=== PATIENT | male | born 1980 | race Caucasian/White ===

== ENCOUNTER → 2016-04-24 | Outpatient (REF) | payer BC, OTHER ==
[2016-04-24 12:19] LABS: ALBUMIN 4.6 GM/DL (3.2-5.2); ALBUMIN/GLOBULIN RATIO 1.35 (1.00-1.93); ALKALINE PHOSPHATASE 78 U/L (45-117); ALT/SGPT 85 U/L (12-78); ANION GAP 7 MEQ/L (8-16); AST/SGOT 39 U/L (15-37); BILIRUBIN,TOTAL 0.8 MG/DL (0.2-1.0); BLOOD UREA NITROGEN 22 MG/DL (7-18); CALCIUM LEVEL 9.4 MG/DL (8.5-10.1); CARBON DIOXIDE LEVEL 31 MEQ/L (21-32); CHLORIDE LEVEL 104 MEQ/L (98-107); GLOMERULAR FILTRATION RATE > 60.0 (>60); GLUCOSE, FASTING 101 MG/DL (70-105); POTASSIUM SERUM 4.6 MEQ/L (3.5-5.1); SODIUM LEVEL 142 MEQ/L (136-145)
== END ==
LOC: M LABDRAW1 10:55
PROVIDERS: ATTEND Family Medicine
DX: R73.01 Impaired fasting glucose (principal); R74.8 Abnormal levels of other serum enzymes

== ENCOUNTER → 2016-12-07 | Outpatient (REF) | payer OTHER | LOC: M SFHCPLAZ 12:41 | PROVIDERS: ATTEND Family Medicine | DX: J30.2 Other seasonal allergic rhinitis (principal) ==

== ENCOUNTER → 2017-08-07 | Outpatient (CLI) | payer BC, OTHER | LOC: M SLEEP 20:11 | DX: G47.30 Sleep apnea, unspecified (principal) | CPT/HCPCS: 95810 ==

== ENCOUNTER → 2017-09-19 | Outpatient (CLI) | payer BC, OTHER | LOC: M SLEEP 19:43 | DX: G47.33 Obstructive sleep apnea (adult) (pediatric) (principal) | CPT/HCPCS: 95811 ==

== ENCOUNTER → 2018-02-17 | Outpatient (REF) | payer BC, OTHER | LOC: M LAB REF 20:15 | DX: L73.8 Other specified follicular disorders (principal) | CPT/HCPCS: 87186 ==

== ENCOUNTER → 2018-05-16 | Outpatient (REF) | payer OTHER ==
[2018-05-16 14:18] LABS: HEMOGLOBIN 18.2 g/dl (13.5-17.5); MEAN CORPUSCULAR HEMOGLOBIN 32.9 pg (27.0-33.0); MEAN CORPUSCULAR VOLUME 93.9 fl (80.0-96.0); PLATELET COUNT, AUTOMATED 190 10^3/uL (150-450); RED BLOOD COUNT 5.54 10^6/uL (4.30-6.10); WHITE BLOOD COUNT 5.9 10^3/uL (4.0-10.0)
[2018-05-16 14:21] LABS: ALBUMIN 4.4 GM/DL (3.2-5.2); ALT/SGPT 136 U/L (12-78); BLOOD UREA NITROGEN 18 MG/DL (7-18); CALCIUM LEVEL 9.1 MG/DL (8.5-10.1); CARBON DIOXIDE LEVEL 29 MEQ/L (21-32); CHLORIDE LEVEL 103 MEQ/L (98-107); CHOLESTEROL LEVEL 217 MG/DL (<200); CHOLESTEROL RISK RATIO 4.931 (<5); CREATININE FOR GFR 1.24 MG/DL (0.70-1.30); FERRITIN 534 NG/ML (26-388); GLOMERULAR FILTRATION RATE > 60.0 (>60); GLUCOSE, FASTING 110 MG/DL (70-100); HDL CHOLESTEROL 44 MG/DL (>40); IRON (FE) 159 UG/DL (65-175); LDL CHOLESTEROL 142 MG/DL (<100); NON-HDL-C 173 MG/DL; PERCENT SATURATION 45.2 % (19.7-50.0); POTASSIUM SERUM 4.4 MEQ/L (3.5-5.1); SODIUM LEVEL 137 MEQ/L (136-145); TOTAL IRON BINDING CAPACITY 352 UG/DL (250-450); TOTAL PROTEIN 7.5 GM/DL (6.4-8.2); TRIGLYCERIDES LEVEL 154 MG/DL (<150)
[2018-05-16 15:37] LABS: HEPATITIS B SURFACE ANTIGEN NEGATIVE (NEGATIVE)
== END ==
LOC: M SFHCPLAZ 11:20
PROVIDERS: ATTEND Family Medicine
DX: R79.89 Other specified abnormal findings of blood chemistry (principal); Z13.220 Encounter for screening for lipoid disorders
CPT/HCPCS: 36415; 80053; 80061; 82728; 83550; 85027; 87340; G0472

== ENCOUNTER → 2018-05-19 | Outpatient (REF) | payer OTHER ==
[2018-05-19 16:40] LABS: HEMATOCRIT 51.6 % (42.0-52.0); HEMOGLOBIN 17.7 g/dl (13.5-17.5); MEAN CORPUSCULAR HEMOGLOBIN 32.2 pg (27.0-33.0); MEAN CORPUSCULAR HGB CONC 34.3 g/dl (32.0-36.5); MEAN CORPUSCULAR VOLUME 93.8 fl (80.0-96.0); PLATELET COUNT, AUTOMATED 241 10^3/uL (150-450); WHITE BLOOD COUNT 8.2 10^3/uL (4.0-10.0)
== END ==
LOC: M SFHCPLAZ 14:54
PROVIDERS: ATTEND Family Medicine
DX: D75.1 Secondary polycythemia (principal)

== ENCOUNTER → 2018-05-22 | Outpatient (REF) | payer OTHER | LOC: M SFHCPLAZ 11:14 | PROVIDERS: ATTEND Dermatology | DX: L71.0 Perioral dermatitis (principal) ==

== ENCOUNTER → 2018-09-17 | Outpatient (REF) | payer OTHER ==
[2018-09-17 09:59] LABS: HEMATOCRIT 49.2 % (42.0-52.0); HEMOGLOBIN 16.9 g/dl (13.5-17.5); MEAN CORPUSCULAR HEMOGLOBIN 31.8 pg (27.0-33.0); MEAN CORPUSCULAR HGB CONC 34.3 g/dl (32.0-36.5); MEAN CORPUSCULAR VOLUME 92.5 fl (80.0-96.0); PLATELET COUNT, AUTOMATED 225 10^3/uL (150-450); RED BLOOD COUNT 5.32 10^6/uL (4.30-6.10); WHITE BLOOD COUNT 5.3 10^3/uL (4.0-10.0)
[2018-09-17 10:09] LABS: INR 1.06; PROTHROMBIN TIME 13.5 SECONDS (11.8-14.0)
[2018-09-17 10:10] LABS: PARTIAL THROMBOPLASTIN TIME 28.2 SECONDS (25.0-38.4)
[2018-09-17 10:27] LABS: ALBUMIN 4.5 GM/DL (3.2-5.2); ALT/SGPT 138 U/L (12-78); BILIRUBIN,DIRECT 0.2 MG/DL (0.0-0.2); BILIRUBIN,TOTAL 0.8 MG/DL (0.2-1.0); FERRITIN 474 NG/ML (26-388); IRON (FE) 109 UG/DL (65-175); PERCENT SATURATION 29.6 % (19.7-50.0); TOTAL IRON BINDING CAPACITY 368 UG/DL (250-450); TOTAL PROTEIN 7.8 GM/DL (6.4-8.2)
[2018-09-17 11:01] LABS: HEPATITIS B SURFACE ANTIBODY NEGATIVE (POSITIVE)
[2018-09-17 11:23] LABS: HEPATITIS B SURFACE ANTIGEN NEGATIVE (NEGATIVE)
[2018-09-17 11:38] LABS: HEPATITIS C VIRUS ABY INDEX 0.1 INDEX (<0.8)
[2018-09-17 11:42] LABS: HEPATITIS A ANTIBODY IGM NEGATIVE (NEGATIVE)
[2018-09-18 12:12] LABS: ALBUMIN % 63.5 % (55.8-66.1); ALPHA-1-GLOBULIN % 3.3 % (2.9-4.9); ALPHA-2-GLOBULINS % 7.9 % (7.1-11.8); BETA-1-GLOBULINS % 5.7 % (4.7-7.2)
[2018-09-18 12:13] LABS: ALBUMIN 4.95 GM/DL (3.29-5.55); ALPHA-1-GLOBULINS 0.26 GM/DL (0.17-0.41); ALPHA-2-GLOBULINS 0.62 GM/DL (0.42-0.99); BETA-1-GLOBULINS 0.44 GM/DL (0.28-0.60); BETA-2-GLOBULINS % 3.9 % (3.2-6.5); GAMMA GLOBULIN % 15.7 % (11.1-18.8); GAMMA GLOBULINS 1.22 GM/DL (0.65-1.58)
[2018-09-23 00:06] LABS: ALPHA 1 ANTITRYPSIN 110 mg/dL (90-200); ANTI-MITOCHONDRIAL ANTIBODY <20.0 Units (0.0-20.0); ANTI-SMOOTH MUSCLE ANTIBODY 23 Units (0-19); ANTINUCLEAR ANTIBODIES DIRECT Negative (Negative); CERULOPLASMIN 19.8 mg/dL (16.0-31.0); HEPATITIS A IgG TOTAL Negative (Negative); LIVER-KIDNEY MICROSOMAL ABY <20.1 Units (0.0-20.0)
== END ==
LOC: M LABDRAWP 08:43
PROVIDERS: ATTEND Internal Medicine Gastroenterology
DX: R94.5 Abnormal results of liver function studies (principal); K76.0 Fatty (change of) liver, not elsewhere classified; F10.20 Alcohol dependence, uncomplicated; R77.8 Other specified abnormalities of plasma proteins; D75.1 Secondary polycythemia; R10.31 Right lower quadrant pain; R19.5 Other fecal abnormalities

== ENCOUNTER → 2018-10-29 | Outpatient (CLI) | payer OTHER ==
--- NOTE | 2018-10-29 11:30 | REP ---
LEFT FOOT, FOUR VIEWS: HISTORY: Pain. There is no acute fracture or dislocation. The joint spaces are normal in appearance. An osteophyte is present on the posterior calcaneus. IMPRESSION: There is no acute fracture or dislocation. Electronically Signed by Jacob Booker MD 10/29/2018 12:47 P
== END ==
LOC: M LRY 10:48
PROVIDERS: ATTEND Physician Assistant
DX: M79.672 Pain in left foot (principal)

== ENCOUNTER → 2018-11-06 | Outpatient (REF) | payer OTHER ==
[2018-11-06 15:52] LABS: PLATELET COUNT, AUTOMATED 243 10^3/uL (150-450)
[2018-11-06 16:02] LABS: INR 1.01
[2018-11-06 16:03] LABS: PARTIAL THROMBOPLASTIN TIME 30.8 SECONDS (25.0-38.4)
== END ==
LOC: M LABDRAW1 11:46
PROVIDERS: ATTEND Physician Assistant
DX: Z01.812 Encounter for preprocedural laboratory examination (principal)

== ENCOUNTER → 2019-06-02 | Outpatient (CLI) | payer OTHER ==
[2019-06-02 15:14] LABS: HEMATOCRIT 50.5 % (42.0-52.0); MEAN CORPUSCULAR HEMOGLOBIN 33.3 pg (27.0-33.0); MEAN CORPUSCULAR HGB CONC 35.6 g/dl (32.0-36.5); MEAN CORPUSCULAR VOLUME 93.3 fl (80.0-96.0); PLATELET COUNT, AUTOMATED 246 10^3/uL (150-450); RED BLOOD COUNT 5.41 10^6/uL (4.30-6.10); WHITE BLOOD COUNT 5.5 10^3/uL (4.0-10.0)
[2019-06-02 15:30] LABS: INR 0.99; PROTHROMBIN TIME 12.8 SECONDS (11.8-14.0)
[2019-06-02 15:56] LABS: ALBUMIN 4.4 GM/DL (3.2-5.2); BILIRUBIN,DIRECT 0.1 MG/DL (0.0-0.2); BILIRUBIN,TOTAL 0.5 MG/DL (0.2-1.0); TOTAL PROTEIN 7.7 GM/DL (6.4-8.2)
== END ==
LOC: M PLALAB 12:52
PROVIDERS: ATTEND Internal Medicine Gastroenterology
DX: R19.5 Other fecal abnormalities (principal); R10.31 Right lower quadrant pain; R94.5 Abnormal results of liver function studies; K76.0 Fatty (change of) liver, not elsewhere classified; R77.8 Other specified abnormalities of plasma proteins; F10.20 Alcohol dependence, uncomplicated

== ENCOUNTER → 2020-01-24 | Outpatient (CLI) | payer OTHER | LOC: M LABSMTC 10:07 | PROVIDERS: ATTEND Physical Medicine & Rehabilitation | DX: Z20.828 Contact with and (suspected) exposure to other viral communicable diseases (principal) ==

== ENCOUNTER → 2020-09-19 | Outpatient (REF) | payer OTHER, BC ==
[2020-09-19 17:19] LABS: HEMATOCRIT 49.4 % (42.0-52.0); HEMOGLOBIN 17.4 g/dl (13.5-17.5); MEAN CORPUSCULAR HEMOGLOBIN 32.4 pg (27.0-33.0); MEAN CORPUSCULAR HGB CONC 35.2 g/dl (32.0-36.5); PLATELET COUNT, AUTOMATED 244 10^3/uL (150-450); RED BLOOD COUNT 5.37 10^6/uL (4.30-6.10); WHITE BLOOD COUNT 6.2 10^3/uL (4.0-10.0)
[2020-09-19 17:29] LABS: INR 0.91; PARTIAL THROMBOPLASTIN TIME 28.8 SECONDS (24.2-38.5); PROTHROMBIN TIME 12.4 SECONDS (12.5-14.3)
[2020-09-19 17:51] LABS: ALBUMIN 4.6 GM/DL (3.2-5.2); ALT/SGPT 160 U/L (12-78); BILIRUBIN,DIRECT 0.2 MG/DL (0.0-0.2); BILIRUBIN,TOTAL 0.6 MG/DL (0.2-1.0); BLOOD UREA NITROGEN 13 MG/DL (7-18); CALCIUM LEVEL 9.7 MG/DL (8.5-10.1); CARBON DIOXIDE LEVEL 27 MEQ/L (21-32); CHLORIDE LEVEL 107 MEQ/L (98-107); CREATININE FOR GFR 1.07 MG/DL (0.70-1.30); GLOMERULAR FILTRATION RATE > 60.0 (>60); GLUCOSE, FASTING 108 MG/DL (70-100); POTASSIUM SERUM 4.3 MEQ/L (3.5-5.1); SODIUM LEVEL 138 MEQ/L (136-145); TOTAL PROTEIN 7.6 GM/DL (6.4-8.2)
== END ==
LOC: M PLALAB 16:52
PROVIDERS: ATTEND Internal Medicine Gastroenterology
DX: R10.31 Right lower quadrant pain (principal); R94.5 Abnormal results of liver function studies; F10.20 Alcohol dependence, uncomplicated; D75.1 Secondary polycythemia; R77.8 Other specified abnormalities of plasma proteins; K76.0 Fatty (change of) liver, not elsewhere classified

== ENCOUNTER → 2020-10-14 | Outpatient (CLI) | payer BC, OTHER ==
--- NOTE | 2020-10-14 09:16 | REP ---
INDICATION: ELEVATED LFT'S. COMPARISON: 09/17/2018. TECHNIQUE: Real-time sonographic evaluation of ABDOMEN performed. FINDINGS: The gallbladder demonstrates no evidence of intraluminal sludge or calculi, wall thickening or pericholecystic fluid. There is no intrahepatic or extrahepatic biliary dilatation, common bile duct measures 4 mm in maximum diameter. Liver demonstrates diffuse heterogeneous increased echotexture compatible with diffuse fibrofatty infiltration. No gross liver mass is seen. The pancreas demonstrates homogeneous echotexture with no gross mass. The pancreatic tail is not well seen due to overlying bowel gas. Spleen is normal in size with no intrinsic abnormality, measuring 11.3 cm in length. There is no evidence of hydronephrosis, cyst, mass, or calculus in either kidney. The right kidney measures 11.0 x 6.8 x 6.9 cm. Left renal dimensions are 12.9 x 6.7 x 7.0 cm. The abdominal aorta is normal in caliber with no aneurysm. No free fluid is seen. IMPRESSION: Diffuse fibrofatty infiltration of the liver. <Electronically signed by Everardo Justice > 10/14/20 0912
== END ==
LOC: M RAD 08:13
PROVIDERS: ATTEND Nurse Practitioner Family
DX: R94.5 Abnormal results of liver function studies (principal); K76.0 Fatty (change of) liver, not elsewhere classified

== ENCOUNTER → 2021-03-14 | Outpatient (CLI) | payer BC, OTHER ==
[2021-03-14 13:07] LABS: BASO # 0.1 10^3/uL (0.0-0.2); BASO % 1.2 % (0.0-1.0); EOS % 0.7 % (0.0-3.0); HEMATOCRIT 52.8 % (42.0-52.0); HEMOGLOBIN 18.2 g/dl (13.5-17.5); LYMPH # 1.6 10^3/uL (1.5-5.0); LYMPH % 28.7 % (24.0-44.0); MEAN CORPUSCULAR HEMOGLOBIN 32.2 pg (27.0-33.0); MEAN CORPUSCULAR HGB CONC 34.5 g/dl (32.0-36.5); MEAN CORPUSCULAR VOLUME 93.3 fl (80.0-96.0); MONO # 0.7 10^3/uL (0.0-0.8); MONO % 12.7 % (2.0-8.0); NEUTROPHILS # 3.2 10^3/uL (1.5-8.5); NEUTROPHILS % 56.2 % (36.0-66.0); PLATELET COUNT, AUTOMATED 239 10^3/uL (150-450); RED BLOOD COUNT 5.66 10^6/uL (4.30-6.10); WHITE BLOOD COUNT 5.6 10^3/uL (4.0-10.0)
[2021-03-14 13:29] LABS: ERYTHROCYTE SEDIMENTATION RATE 2 mm/hr (0-15)
[2021-03-14 13:41] LABS: ALBUMIN 4.5 GM/DL (3.2-5.2); ALT/SGPT 163 U/L (12-78); BILIRUBIN,TOTAL 0.9 MG/DL (0.2-1.0); BLOOD UREA NITROGEN 15 MG/DL (7-18); CALCIUM LEVEL 9.8 MG/DL (8.5-10.1); CARBON DIOXIDE LEVEL 28 MEQ/L (21-32); CHLORIDE LEVEL 103 MEQ/L (98-107); CREATININE FOR GFR 1.08 MG/DL (0.70-1.30); GLOMERULAR FILTRATION RATE > 60.0 (>60); GLUCOSE, FASTING 110 MG/DL (70-100); POTASSIUM SERUM 4.3 MEQ/L (3.5-5.1); SODIUM LEVEL 138 MEQ/L (136-145); TOTAL PROTEIN 7.8 GM/DL (6.4-8.2)
== END ==
LOC: M PLALAB 10:43
PROVIDERS: ATTEND Physician Assistant
DX: R51.9 Headache, unspecified (principal)

== ENCOUNTER → 2021-03-21 | Outpatient (CLI) | payer BC, OTHER | LOC: M PLAIMG 09:31 | PROVIDERS: ATTEND Physician Assistant | DX: G44.52 New daily persistent headache (NDPH) (principal) ==

== ENCOUNTER → 2021-06-20 | Outpatient (CLI) | payer BC, OTHER ==
[2021-06-20 15:16] LABS: HEMATOCRIT 50.6 % (42.0-52.0); HEMOGLOBIN 17.8 g/dl (13.5-17.5); MEAN CORPUSCULAR HEMOGLOBIN 32.2 pg (27.0-33.0); MEAN CORPUSCULAR HGB CONC 35.2 g/dl (32.0-36.5); MEAN CORPUSCULAR VOLUME 91.7 fl (80.0-96.0); PLATELET COUNT, AUTOMATED 222 10^3/uL (150-450); RED BLOOD COUNT 5.52 10^6/uL (4.30-6.10); WHITE BLOOD COUNT 5.1 10^3/uL (4.0-10.0)
[2021-06-20 15:23] LABS: ALBUMIN 4.5 GM/DL (3.2-5.2); BILIRUBIN,DIRECT 0.2 MG/DL (0.0-0.2); BILIRUBIN,TOTAL 0.9 MG/DL (0.2-1.0); TOTAL PROTEIN 7.9 GM/DL (6.4-8.2)
[2021-06-20 15:29] LABS: INR 0.97; PROTHROMBIN TIME 13.3 SECONDS (12.7-14.5)
== END ==
LOC: M PLALAB 11:43
PROVIDERS: ATTEND Internal Medicine Gastroenterology
DX: F10.20 Alcohol dependence, uncomplicated (principal); R10.31 Right lower quadrant pain; R94.5 Abnormal results of liver function studies; D75.1 Secondary polycythemia; R77.8 Other specified abnormalities of plasma proteins; K76.0 Fatty (change of) liver, not elsewhere classified

== ENCOUNTER → 2021-08-11 | Outpatient (CLI) | payer BC, OTHER ==
[~2021-08-11] MED LIST: BREO1INH3; LIDOCAINE 1% MDV 20ML VIAL As Ordered ONE; MONT10TA97
[2021-08-11 12:34] VITALS: BP 125/79
== END ==
LOC: M IRPRO 09:02
PROVIDERS: ATTEND Internal Medicine Gastroenterology
DX: K76.0 Fatty (change of) liver, not elsewhere classified (principal); R94.5 Abnormal results of liver function studies; K21.9 Gastro-esophageal reflux disease without esophagitis

== ENCOUNTER → 2022-01-23 | Outpatient (CLI) | payer BC, OTHER ==
[~2022-01-23] MED LIST changes: -LIDOCAINE 1% MDV 20ML VIAL As Ordered ONE
[2022-01-23 10:31] LABS: ALBUMIN 4.2 GM/DL (3.2-5.2); BILIRUBIN,DIRECT 0.2 MG/DL (0.0-0.2); BILIRUBIN,TOTAL 0.8 MG/DL (0.2-1.0); TOTAL PROTEIN 7.7 GM/DL (6.4-8.2)
== END ==
LOC: M LAB 08:44
PROVIDERS: ATTEND Internal Medicine Gastroenterology
DX: R94.5 Abnormal results of liver function studies (principal); K76.0 Fatty (change of) liver, not elsewhere classified; R19.5 Other fecal abnormalities; F10.20 Alcohol dependence, uncomplicated

== ENCOUNTER → 2023-07-04 | Outpatient (CLI) | payer BC, OTHER | LOC: M CLY 15:04 | PROVIDERS: ATTEND Physician Assistant | DX: Z53.9 Procedure and treatment not carried out, unspecified reason (principal) ==

== ENCOUNTER → 2023-07-05 | Outpatient (CLI) | payer BC, OTHER | LOC: M CLY 15:15 | PROVIDERS: ATTEND Physician Assistant | DX: R05.1 Acute cough (principal) ==

== ENCOUNTER → 2024-04-23 | Outpatient (REF) | payer BC, OTHER | LOC: M SFHCDERM 17:34 | PROVIDERS: ATTEND Dermatology | DX: L82.1 Other seborrheic keratosis (principal) ==

== ENCOUNTER → 2024-06-15 | Outpatient (REF) | payer BC ==
[2024-06-15 17:07] LABS: ALBUMIN 4.3 G/DL (3.2-5.2); ALKALINE PHOSPHATASE 80 U/L (40-129); ALT/SGPT 127 U/L (7.0-40); AST/SGOT 65 U/L (<34); BILIRUBIN,TOTAL 0.7 MG/DL (0.3-1.2); BLOOD UREA NITROGEN 12 MG/DL (9-23); CALCIUM LEVEL 9.9 MG/DL (8.5-10.1); CARBON DIOXIDE LEVEL 28 MMOL/L (20-31); CHLORIDE LEVEL 106 MMOL/L (98-107); CHOLESTEROL LEVEL 206 MG/DL (<200); CHOLESTEROL RISK RATIO 4.13 (<5); CREATININE FOR GFR 0.98 MG/DL (0.70-1.30); GLOMERULAR FILTRATION RATE > 60.0 (>60); GLUCOSE, FASTING 114 MG/DL (60-100); HDL CHOLESTEROL 49.8 MG/DL (>40); LDL CHOLESTEROL 125.6 MG/DL (<100); NON-HDL-C 156.2 MG/DL; POTASSIUM SERUM 4.9 MMOL/L (3.5-5.1); SODIUM LEVEL 142 MMOL/L (136-145); TOTAL PROTEIN 7.6 G/DL (5.7-8.2); TRIGLYCERIDES LEVEL 153 MG/DL (<150)
[2024-06-15 17:10] LABS: FREE T4 1.12 NG/DL (0.89-1.76); THYROID STIMULATING HORMONE 1.361 uIU/ML (0.55-4.78)
[2024-06-15 17:52] LABS: HEMOGLOBIN A1c 5.5 % (4.0-6.0)
== END ==
LOC: M SFHCCLAY 10:03
PROVIDERS: ATTEND Nurse Practitioner Family
DX: K75.81 Nonalcoholic steatohepatitis (NASH) (principal); J45.20 Mild intermittent asthma, uncomplicated; K21.9 Gastro-esophageal reflux disease without esophagitis; G47.33 Obstructive sleep apnea (adult) (pediatric); F41.9 Anxiety disorder, unspecified; E11.9 Type 2 diabetes mellitus without complications; J30.2 Other seasonal allergic rhinitis